=== PATIENT | male | born 1975 | race Caucasian/White ===

== ENCOUNTER 2018-10-03 21:31 | Emergency (ER) | payer SELFPAY ==
[~2018-10-03] VITALS: Ht 165.1 cm; Wt 66.7 kg
[2018-10-03 21:40] VITALS: Ht 165.1 cm; Wt 66.7 kg
--- NOTE | 2018-10-03 22:34 | ERD ---
ER Documentation Chief Complaint Chief Complaint LEFT SIDED ARM NUMBNESS WITH TINGLING SENSATION SINCE TODAY HPI The patient is a 43-year-old male, presenting to the ER because of left arm tingling and numbness began around 10 AM today, he is under a lot of stress, only slept 2-hour last night, has been drinking a lot of coffee and soda to stay awake for work, has not been eating or drinking. The symptom is intermittent, he has been walking a lot, denies fever, chills, neck pain, chest pain, dyspnea, abdominal pain, vomiting, dizzy, diarrhea. He smokes and drinks, denies illicit drug, under a lot of stress Past medical history: Diabetes mellitus diet-controlled only, history of kidney stones Past surgical history: Cholecystectomy, cleft palate ROS All systems reviewed and are negative except as per history of present illness. Allergies Allergies: Coded Allergies: No Known Allergy (Unverified , 12/16/13) Physical Exam Vitals Vital Signs Date Temp Pulse Resp B/P (MAP) Pulse Ox O2 O2 Flow FiO2 Time Delivery Rate 10/04/18 98.0 114 18 119/81 99 Room Air 00:24 (94) 10/03/18 120 20 101/83 99 Room Air 23:20 (89) 10/03/18 98.6 121 18 136/86 96 21:40 (103) Physical Exam Const: No acute distress. Head: Atraumatic. Eyes: Normal Conjunctiva. ENT: Normal External Ears, Nose and Mouth. Neck: Full range of motion. No meningismus. Resp: Clear to auscultation bilaterally. Cardio: Regular rate and rhythm. Abd: Soft, non distended, normal bowel sounds, non tender. Skin: No petechiae or rashes. Back: No midline or flank tenderness. Ext: No cyanosis, or edema. Neur: Awake and alert. No focal deficit Psych: Anxious Result Diagram: 10/03/18 2315 10/03/18 2315 Results 24 hrs Laboratory Tests Test 10/03/18 23:15 White Blood Count 11.5 10^3/ul Red Blood Count 5.09 10^6/ul Hemoglobin 15.7 g/dl Hematocrit 45.8 % Mean Corpuscular Volume 90.0 fl Mean Corpuscular Hemoglobin 30.8 pg Mean Corpuscular Hemoglobin Concent 34.3 g/dl Red Cell Distribution Width 13.7 % Platelet Count 217 10^3/UL Mean Platelet Volume 9.1 fl Immature Granulocytes % 0.300 % Neutrophils % 75.9 % Lymphocytes % 12.5 % Monocytes % 10.8 % Eosinophils % 0.3 % Basophils % 0.2 % Nucleated Red Blood Cells % 0.0 /100WBC Immature Granulocytes # 0.030 10^3/ul Neutrophils # 8.7 10^3/ul Lymphocytes # 1.4 10^3/ul Monocytes # 1.2 10^3/ul Eosinophils # 0.0 10^3/ul Basophils # 0.0 10^3/ul Nucleated Red Blood Cells # 0.0 10^3/ul Sodium Level 137 mmol/L Potassium Level 4.3 mmol/L Chloride Level 101 mmol/L Carbon Dioxide Level 26 mmol/L Anion Gap 10 Blood Urea Nitrogen 15 mg/dl Creatinine 0.94 mg/dl Est Glomerular Filtrat Rate mL/min > 60 mL/min Glucose Level 175 mg/dl Calcium Level 9.9 mg/dl Creatine Kinase 836 IU/L Troponin I < 0.012 ng/ml Ethyl Alcohol Level < 10.0 mg/dl Current Medications Medications Dose Sig/Kwasi Start Time Status Last (Trade) Ordered Route PRN Stop Time Admin Dose Reason Admin Sodium 1,000 ml @ Q1H STAT 10/03/18 DC 10/03/18 Chloride 1,000 mls/hr IV 22:56 10/03/18 23:15 23:55 Procedures/MDM [place] [id number] Radiology Main Line: [phone] DIAGNOSTIC IMAGING REPORT Patient: GARIMA GARCIA : 1975 Age: 43 Sex: M MR [id number] [facility]: [id number] DOS: 10/03/18 2259 Ordering MD: TEAGAN RODRÍGUEZ MD Location: E/R Room/Bed: PROCEDURE: CT Brain without contrast. CLINICAL INDICATION: Left-sided numbness TECHNIQUE: A CT of the brain was performed utilizing axial imaging from the skull base through the vertex without IV contrast. Multiplanar reformatted images were made. Images were reviewed on a PACS workstation. The CTDIvol is 36.21 mGy and the DLP is 634.23 mGycm. One or more the following dose reduction techniques were utilized: Automated exposure control, adjustment of the mA and / or kV according to patient's size, or use of iterative reconstruction technique. DICOM images are available. COMPARISON: None FINDINGS: There is no intracranial hemorrhage, mass effect, or midline shift. No extra- axial fluid collection is seen. The ventricles and sulci are normal in size and configuration. The density of the brain is normal, and the zhao white matter differentiation appears well-preserved. The visualized paranasal sinuses and osseous structures are grossly unremarkable. IMPRESSION: 1. No evidence of acute intracranial pathology. 2. The brain is normal in appearance. RPTAT: HJES .Jeffrey Aguilera MD, Date Time Electronically viewed and signed by .Jeffrey Aguilera MD, on 10/03/2018 23:32 .S/ CC: TEAGAN RODRÍGUEZ MD [id number] [place] [address] Radiology Main Line: [phone] DIAGNOSTIC IMAGING REPORT Patient: GARIMA GARCIA : 1975 Age: 43 Sex: M MR #: [id number] DOS: 10/03/18 2256 Ordering MD: TEAGAN RODRÍGUEZ MD Location: E/R Room/Bed: PROCEDURE: One view chest radiograph. CLINICAL INDICATION: Chest pain. TECHNIQUE: An AP view of the chest was obtained. COMPARISON: None. FINDINGS: Mediastinum: Unremarkable. Heart size: Normal. Pulmonary vasculature: No visible engorgement. Lungs: Clear. Costophrenic sulci: Clear. Bony structures: Grossly unremarkable for age. IMPRESSION: 1. Unremarkable single view chest. RPTAT:AAJJ Physician Roxy Date Time Electronically viewed and signed by Physician Roxy on 10/03/2018 23:42 GW/ CC: TEAGAN RODRÍGUEZ MD [id number] EKG: Read by emergency physician Rate/Rhythm: Sinus tachycardia 119 beats/min QRS, ST, T-waves: No ST elevation, no T inversion Impression: Abnormal EKG MEDICAL MAKING DECISION: The patient is a 43-year-old male, presenting with paresthesias of unclear etiology, most likely due to acute stress and increased caffeine intake The differential diagnoses considered include but are not limited to TIA, anxiety, depression, caffeine toxicity Departure Diagnosis: Primary Impression: Paresthesia Condition: Good Comments The patient's blood pressure was elevated (>120/80) but appears stable without evidence of hypertension emergency or urgency. The patient was counseled about the risks of hypertension and urged to pursue outpatient monitoring and therapy within a week with their primary care physician. I discussed the findings with the patient. I advised the patient to follow-up with the primary physician in about 1-2 days, sooner if needed and return if any concern. Disclaimer: Inadvertent spelling and grammatical errors are likely due to EHR/dictation software use and do not reflect on the overall quality of patient care. Also, please note that the electronic time recorded on this note does not necessarily reflect the actual time of the patient encounter. TEAGAN RODRÍGUEZ MD Oct 03, 2018 22:33
[2018-10-03] MEDS ORDERED: SOD CHLORIDE 0.9% 1,000 ML IV STA (22:56)
[2018-10-04 00:24] VITALS: BP 119/81; PULSE 114; RESP 18
== END 2018-10-04 01:02 | disposition home or self-care (01) ==
LOC: E/R 21:31
DX: R20.2 Paresthesia of skin (principal); E11.9 Type 2 diabetes mellitus without complications; R07.9 Chest pain, unspecified
CPT/HCPCS: 36415; 70450; 71045; 80048; 80307; 82550; 84484; 85025; 99285; J7030; 93005